=== PATIENT | female | born 1990 | race Caucasian/White ===

== ENCOUNTER 2017-05-23 22:36 | Emergency (ER) | payer OTHER ==
[~2017-05-23] VITALS: Ht 170.2 cm; Wt 62.5 kg
[~2017-05-23 22:36] MED LIST: CARAS PO; CETI10CA PO; FAMO-96 PO; LACT1CAP56 PO; OFLO5DRO46 BOTH EYES
[2017-05-23 22:57] VITALS: Ht 170.2 cm; Wt 62.5 kg
[2017-05-24] MEDS ORDERED: ACETAMINOPHEN 500 MG TAB PO STA (00:55)
--- NOTE | 2017-05-24 01:24 | RADRPT ---
PROCEDURE: CT Brain without contrast. CLINICAL INDICATION: Trauma, headache. TECHNIQUE: A CT of the brain was performed utilizing axial sections from the skull base through th e vertex without contrast. Multiplanar re-formations were generated. Images were reviewed on a high- resolution PACS workstation. CTDIvol: 45.01 mGy. DLP: 720.22 mGy-cm. One or more of the following dose reduction techniques were used: - Automated exposure control. - Adjustment of the mA and/or kV according to patient size. - Use of iterative reconstruction technique. COMPARISON: None available FINDINGS: There is no cerebral volume loss. No hydrocephalus is seen. There is no mass effect. No acute intrac ranial hemorrhage is identified. There is no extra-axial collection. Hill-white matter differentiati on is preserved. There is no significant mucosal disease in the paranasal sinuses. The visualized mastoid air cells are clear. The ossesous structures are unremarkable. The extracranial soft tissues are unremarkable. IMPRESSION: 1. No acute intracranial pathology. RPTAT: HTAR .Anders Baker MD, Date Time Electronically viewed and signed by .Anders Baker MD, on 05/24/2017 01:23 .R/
--- NOTE | 2017-05-24 01:32 | RADRPT ---
PROCEDURE: CT cervical spine without contrast CLINICAL INDICATION: Trauma. Pain. TECHNIQUE: CT scan of the cervical spine was performed on a multidetector scanner. No IV contrast was administered. Coronal and sagittal reformatted images were obtained from the axial source imag es. Images were reviewed on a high-resolution PACS workstation. Exam CTDlvol = 22 in mGy and DLP = 550 mGy-cm. One of the following 3 dose reduction techniques were used: Automated exposure control; adjustment o f the mA and/or kV according to patient size; or use of iterative reconstruction technique. COMPARISON: None available FINDINGS: There is no fracture. Alignment is maintained. There is no spondylolisthesis. There is maintenanc e of height of the vertebral bodies. No significant degenerative changes are noted. Bone mineraliz ation is within normal limits. Prevertebral soft tissues are unremarkable. IMPRESSION: 1. No acute post traumatic abnormality. RPTAT: HMVK .Sree Charles MD, Date Time Electronically viewed and signed by .Sree Charles MD, on 05/24/2017 01:31 .K/
[2017-05-24] MEDS ORDERED: IBUP-1542 PO (01:42)
--- NOTE | 2017-05-24 01:58 | ERD ---
ER Documentation Chief Complaint Date/Time DATE: 05/24/17 TIME: 01:55 Chief Complaint pt reports a prop wall fell on her head HPI This is a 27-year-old female presents to the ER after a fall meet of shira fell on her head and acting classmate 845 PM. Patient denies any loss of consciousness, she denies any nausea or vomiting. Patient now has a headache that radiates down into the sides of her neck. Headache is throbbing in quality , she has not taken anything for the pain. Any weaknesses of her upper extremities. She denies any numbness or tingling of her upper extremities. ROS 12 point review of systems was done, all negative except per HPI. Medications Home Meds Active Scripts Ibuprofen* (Motrin*) 600 Mg Tab, 600 MG PO Q6, #30 TAB Prov:TERI HERNANDEZ 05/24/17 Sucralfate* (Carafate*) 1 Gm/10 Ml Susp, 1 GM PO TID Y for dyspepsia for 5 Days , EA Prov:YONI RODRIGUES MD 01/22/16 Famotidine* (Pepcid*) 20 Mg Tablet, 20 MG PO BID, #30 TAB Prov:YOIN RODRIGUES MD 01/22/16 Reported Medications Ofloxacin* (Ocuflox*) 0.3%-5 Ml Ophth Drops, 1-2 DROP BOTH EYES QID, BOTTLE 01/25/16 Lactobacillus Combo No.11 (Probiotic) 1 Each Cap.sprink, 1 CAP PO DAILY, CAP 01/25/16 Cetirizine Hcl* (Zyrtec*) 10 Mg Capsule, 10 MG PO DAILY, TAB 01/25/16 Allergies Allergies: Coded Allergies: clarithromycin (Verified Allergy, Severe, 01/25/16) Lactase (Verified Allergy, Mild, 01/26/16) ALLERGIC TO DAIRY PRODUCTS corn (Verified Allergy, Mild, 01/26/16) egg (Verified Allergy, Mild, 01/26/16) gluten (Verified Allergy, Mild, 01/26/16) PMhx/Soc History of Surgery: Yes (CHOLECYSTITIS , SEPTOPLASTY, TONSILETOMY ) Anesthesia Reaction: No Hx Neurological Disorder: No Hx Respiratory Disorders: No Hx Cardiac Disorders: No Hx Psychiatric Problems: No (ANXIETY , DIPRESSION ) Hx Miscellaneous Medical Probl: No Hx Alcohol Use: No Hx Substance Use: No Hx Tobacco Use: No Smoking Status: Never smoker Physical Exam Vitals Physical Exam \GENERAL: The patient is well developed and appropriate for usual state of health, in no apparent distress. HEENT: Atraumatic. Conjunctivae are pink. Pupils equal, round, and reactive to light. Extraocular muscles are grossly intact. Bilateral tympanic membranes are clear with no evidence of erythema, bulging or perforation. No sinus tenderness. NECK: C-spine is soft and supple. There is no cervical lymphadenopathy. Is tender to palpation along bilateral trapezius muscles. CHEST: Clear to auscultation bilaterally. There are no rales, wheezes or rhonchi. HEART: Regular rate and rhythm. No murmurs, clicks, rubs or gallops. EXTREMITIES: Equal pulses bilaterally. There is no peripheral clubbing, cyanosis or edema. No focal swelling or erythema. Full range of motion. Grossly neurovascularly intact. NEURO: Alert and oriented. Cranial nerves II through XII are intact. Motor strength in all 4 extremities with 5/5 strength. Sensation grossly intact. Normal speech and gait. Negative Rhomberg. +2 DTRs. SKIN: There is no apparent rash or petechia. The skin is warm and dry. Results 24 hrs Current Medications Medications (Trade) Dose Ordered Sig/Deja Route PRN Reason Start Time Stop Time Status Last Admin Dose Admin Acetaminophen (Tylenol Tab) 1,000 mg ONCE STAT PO 05/24/17 00:55 05/24/17 00:57 [place] [id number] Radiology Main Line: [phone] DIAGNOSTIC IMAGING REPORT Patient: CHADWICK HAWK : 1990 Age: 27 Sex: F MR #: [id number] DOS: 05/24/17 0000 Ordering MD: TERI HERNANDEZ PA-C Location: [facility] Room/Bed: PROCEDURE: CT Brain without contrast. CLINICAL INDICATION: Trauma, headache. TECHNIQUE: A CT of the brain was performed utilizing axial sections from the skull base through the vertex without contrast. Multiplanar re-formations were generated. Images were reviewed on a high-resolution PACS workstation. CTDIvol: 45.01 mGy. DLP: 720.22 mGy-cm. One or more of the following dose reduction techniques were used: - Automated exposure control. - Adjustment of the mA and/or kV according to patient size. - Use of iterative reconstruction technique. COMPARISON: None available FINDINGS: There is no cerebral volume loss. No hydrocephalus is seen. There is no mass effect. No acute intracranial hemorrhage is identified. There is no extra-axial collection. Hill-white matter differentiation is preserved. There is no significant mucosal disease in the paranasal sinuses. The visualized mastoid air cells are clear. The ossesous structures are unremarkable. The extracranial soft tissues are unremarkable. IMPRESSION: 1. No acute intracranial pathology. RPTAT: HTAR .Anders Baker MD, MD Date Time Electronically viewed and signed by .Anders Baker MD, MD on 05/24/2017 01:23 .R/ CC: TERI HERNANDEZ [place] [id number] Radiology Main Line: [phone] DIAGNOSTIC IMAGING REPORT Patient: CHADWICK HAWK : 1990 Age: 27 Sex: F MR #: [id number] DOS: 05/24/17 0000 Ordering MD: TERI HERNANDEZ PA-C Location: [facility] Room/Bed: PROCEDURE: CT cervical spine without contrast CLINICAL INDICATION: Trauma. Pain. TECHNIQUE: CT scan of the cervical spine was performed on a multidetector scanner. No IV contrast was administered. Coronal and sagittal reformatted images were obtained from the axial source images. Images were reviewed on a high-resolution PACS workstation. Exam CTDlvol = 22 in mGy and DLP = 550 mGy- cm. One of the following 3 dose reduction techniques were used: Automated exposure control; adjustment of the mA and/or kV according to patient size; or use of iterative reconstruction technique. COMPARISON: None available FINDINGS: There is no fracture. Alignment is maintained. There is no spondylolisthesis. There is maintenance of height of the vertebral bodies. No significant degenerative changes are noted. Bone mineralization is within normal limits. Prevertebral soft tissues are unremarkable. IMPRESSION: 1. No acute post traumatic abnormality. RPTAT: HMVK .Sree Charles MD, MD Date Time Electronically viewed and signed by .Sree Charles MD, MD on 05/24/2017 01:31 .K/ CC: TERI HERNANDEZ Procedures/MDM Differential Diagnosis: Concussion, skull fracture, subdural or epidural hematoma, cerebral contusion, intracranial hemorrhage, cervical spine fracture, spinal cord injury transverse myelitis. This is a 27-year-old female presents to the ER with headache that radiates into her neck after a wall fell on top of her head. Because of the mechanism of injury CT imaging was ordered, however it was normal. Patient's physical examination was benign with no focal neurological deficits. At this time patient does have full range of motion of her neck and she does not have any weaknesses of her upper extremities. Suspicion for transverse myelitis, C- spine fracture, intracranial bleed is low. Patient is extremely well-appearing she will be sent home with ibuprofen. She is to follow-up with her primary care doctor within 1-2 days return to ER sooner if symptoms worsen. My medical decision making sure with the patient she understands and agrees with plan. Departure Diagnosis: Primary Impression: Acute head injury Condition: Stable Patient Instructions: First Aid: Head Injuries Additional Instructions: Call your primary care doctor TOMORROW for an appointment during the next 1-2 days.See the doctor sooner or return here if your condition worsens before your appointment time. TERI HERNANDEZ May 24, 2017 01:58 TERI HERNANDEZ May 24, 2017 01:58
== END 2017-05-24 01:55 | disposition home or self-care (01) ==
LOC: FTE 22:36
DX: S09.90XA Unspecified injury of head, initial encounter (principal); R51 Headache; W20.8XXA Other cause of strike by thrown, projected or falling object, initial encounter; Y92.9 Unspecified place or not applicable
CPT/HCPCS: 70450; 72125